=== PATIENT | female | born 1955 | race Two or more races ===

== ENCOUNTER 2019-08-21 12:54 | Inpatient (IN) | payer MEDICAID ==
[~2019-08-21] VITALS: Ht 157.5 cm; Wt 63.5 kg
[2019-08-21] MEDS ORDERED: DILTIAZEM HCL 5 MG/ML 5 ML VIAL IVP ONE ×2 (13:26→13:30)
[2019-08-21 13:48] LABS: BASOPHILS % (AUTO) 0.5 % (0.0-2.0); EOSINOPHILS % (AUTO) 0.1 % (1.0-6.0); HEMATOCRIT 40.5 % (36-46); HEMOGLOBIN 13.5 g/dL (12.0-16.0); LYMPHOCYTES # (AUTO) 1.1 K/uL (1.0-4.8); LYMPHOCYTES % (AUTO) 11.4 % (22.0-44.0); MEAN CORPUSCULAR HEMOGLOBIN 31.4 pg (26.0-34.0); MEAN CORPUSCULAR HGB CONC 33.3 G/dL (31.0-37.0); MEAN CORPUSCULAR VOLUME 94 fL (80-100); MONOCYTES # (AUTO) 1.4 K/uL (0.1-1.0); MONOCYTES % (AUTO) 15.1 % (2.0-9.0); NEUTROPHILS # (AUTO) 6.8 K/uL (1.8-7.7); NEUTROPHILS % (AUTO) 72.9 % (40.0-70.0); RED BLOOD CELL COUNT(AUTO) 4.29 MIL/uL (4.00-5.20); RED CELL DISTRIBUTION WIDTH 14.7 % (11.5-14.5)
[2019-08-21 14:00] LABS: ANION GAP 16 mmol/L (8-16); CALCIUM, TOTAL 9.3 mg/dL (8.8-10.5); CARBON DIOXIDE 19 mmol/L (22-29); CHLORIDE 102 mmol/L (98-107); CREATININE 1.39 mg/dL (0.60-1.30); GLOMERULAR FILTR. RATE CALC 38 mL/min (>60); GLUCOSE,RANDOM 112 mg/dL (70-110); INR 1.3 (0.9-1.1); POTASSIUM 3.8 mmol/L (3.5-5.1); PROTHROMBIN TIME 12.7 SEC (9.4-11.6); SODIUM SERUM 137 mmol/L (136-145)
[2019-08-21 14:10] LABS: PLATELET COUNT (AUTO) 137 K/uL (150-450)
[2019-08-21 14:24] LABS: ALANINE AMINOTRANSFERASE 29 U/L (12-78); ALBUMIN 3.1 g/dL (3.4-5.0); ALKALINE PHOSPHATASE 99 U/L (46-116); ASPARTATE AMINOTRANSFERASE 39 U/L (15-37); BILIRUBIN,TOTAL 1.4 mg/dL (0.1-1.0); CREATINE KINASE, TOTAL ONLY 367 U/L (26-192); TOTAL PROTEIN, SERUM 8.2 g/dL (6.4-8.2)
[2019-08-21 14:25] LABS: B-TYPE NATRIURETIC PEPTIDE 899 pg/mL (0-100)
[2019-08-21 14:32] LABS: UREA NITROGEN, BLOOD 39 mg/dL (7-18)
[2019-08-21] MEDS ORDERED: DILTIAZEM HCL 125 MG in DEXTROSE 5%-WATER 100 ML IV PRN (16:15)
[2019-08-21] MEDS ORDERED: ACETAMINOPHEN 325 MG TABLET PO PRN (18:45)
[2019-08-21] MEDS ORDERED: LORazepam 2 MG/ML VIAL IVP PRN (18:45)
[2019-08-21] MEDS: MULTIVITAMINS WITH MINERALS, THERAPEUTIC TABLET PO SCH (18:45)
[2019-08-21 20:35] LABS: AMPHET/METH SCREEN,URINE NEGATIVE (NEGATIVE); APPEARANCE,URINE CLOUDY (CLEAR); BARBITURATE SCREEN, URINE NEGATIVE (NEGATIVE); BENZODIAZEPINES SCREEN,URINE NEGATIVE (NEGATIVE); CANNABINOID SCREEN,URINE NEGATIVE (NEGATIVE); COCAINE SCREEN,URINE NEGATIVE (NEGATIVE); GLUCOSE, URINE (UA) NEGATIVE (NEGATIVE); KETONES,URINE TRACE mg/dL (NEGATIVE); LEUKOCYTE ESTERASE ,URINE SMALL (NEGATIVE); METHADONE SCREEN, URINE NEGATIVE (NEGATIVE); NITRATE,URINE POSITIVE (NEGATIVE); OCCULT BLOOD,URINE NEGATIVE (NEGATIVE); OPIATE SCREEN,URINE NEGATIVE (NEGATIVE); PROTEIN,URINE NEGATIVE (NEGATIVE)
[2019-08-21 20:36] LABS: BILIRUBIN,URINE PRELIM. POSITIVE (NEGATIVE)
[2019-08-21 20:37] LABS: PHENCYCLIDINE SCREEN,URINE NEGATIVE (NEGATIVE)
[2019-08-21] MEDS ORDERED: DILTIAZEM HCL 125 MG in DEXTROSE 5%-WATER 100 ML IV SCH (21:00)
[2019-08-21] MEDS: DOCUSATE SODIUM 100 MG CAPSULE PO SCH (21:00)
[2019-08-21 21:14] LABS: BACTERIA,URINE Many /HPF (None Seen); RBC,URINE None Seen /HPF (0-2); WBC,URINE 0-2 /HPF (0-5)
[2019-08-21 21:15] LABS: AMORPHOUS SEDIMENT,UR Few /LPF (None Seen); SQUAMOUS EPITHELIAL CELL,UR Few /LPF (None Seen)
[2019-08-21 21:43] VITALS: BP 104/77
[2019-08-21] MEDS: APIXABAN 5 MG TABLET PO SCH (22:35)
[2019-08-21 23:48] VITALS: BP 118/71
[2019-08-22 04:29] VITALS: BP 122/86
[2019-08-22 08:37] VITALS: BP 106/73
[2019-08-22] MEDS: DOCUSATE SODIUM 100 MG CAPSULE PO SCH ×2 (08:49→21:35)
[2019-08-22] MEDS: MULTIVITAMINS WITH MINERALS, THERAPEUTIC TABLET PO SCH (08:49)
[2019-08-22] MEDS: APIXABAN 5 MG TABLET PO SCH (08:49)
[2019-08-22] MEDS: FAMOTIDINE 20 MG TABLET PO SCH (08:49)
[2019-08-22] MEDS ORDERED: MAGNESIUM SULFATE 4 GM/WATER 100 ML IV PRN (10:45)
[2019-08-22] MEDS ORDERED: SODIUM CHLORIDE 0.9% 1,000 ML IV ONE (10:45)
[2019-08-22 10:47] VITALS: BP 111/79
[2019-08-22] MEDS: CARVEDILOL 6.25 MG TABLET PO SCH ×2 (10:57→21:00)
[2019-08-22 12:30] LABS: ALBUMIN 2.7 g/dL (3.4-5.0)
[2019-08-22] MEDS: MAGNESIUM SULFATE 2 GM/WATER 50 ML IV PRN (12:42)
[2019-08-22 13:27] LABS: BASOPHILS % (AUTO) 0.3 % (0.0-2.0); EOSINOPHILS % (AUTO) 0.3 % (1.0-6.0); HEMATOCRIT 39.8 % (36-46); HEMOGLOBIN 13.2 g/dL (12.0-16.0); LYMPHOCYTES # (AUTO) 1.4 K/uL (1.0-4.8); LYMPHOCYTES % (AUTO) 19.1 % (22.0-44.0); MEAN CORPUSCULAR HEMOGLOBIN 31.8 pg (26.0-34.0); MEAN CORPUSCULAR HGB CONC 33.1 G/dL (31.0-37.0); MEAN CORPUSCULAR VOLUME 96 fL (80-100); MONOCYTES # (AUTO) 0.7 K/uL (0.1-1.0); MONOCYTES % (AUTO) 9.7 % (2.0-9.0); NEUTROPHILS # (AUTO) 5.1 K/uL (1.8-7.7); NEUTROPHILS % (AUTO) 70.6 % (40.0-70.0); PLATELET COUNT (AUTO) 115 K/uL (150-450); RED BLOOD CELL COUNT(AUTO) 4.15 MIL/uL (4.00-5.20); RED CELL DISTRIBUTION WIDTH 14.5 % (11.5-14.5)
[2019-08-22 13:32] LABS: ANION GAP 12 mmol/L (8-16); CARBON DIOXIDE 23 mmol/L (22-29); CHLORIDE 105 mmol/L (98-107); CREATININE 0.64 mg/dL (0.60-1.30); GLOMERULAR FILTR. RATE CALC > 60 mL/min (>60); GLUCOSE,RANDOM 101 mg/dL (70-110); POTASSIUM 3.4 mmol/L (3.5-5.1); SODIUM SERUM 140 mmol/L (136-145); UREA NITROGEN, BLOOD 30 mg/dL (7-18)
[2019-08-22] MEDS: POTASSIUM CHLORIDE 20 MEQ ER TABLET PO PRN (14:45)
[2019-08-22] MEDS: LOSARTAN POTASSIUM 25 MG TABLET PO SCH (14:45)
[2019-08-22 15:50] VITALS: BP 104/66
[2019-08-22] MEDS: TAMSULOSIN HCL 0.4 MG CAPSULE PO SCH (16:57)
[2019-08-22 19:42] VITALS: BP 101/65
[2019-08-22] MEDS: APIXABAN 2.5 MG TABLET PO SCH (21:38)
[2019-08-22 23:51] VITALS: BP 104/71
[2019-08-23 04:23] VITALS: BP 99/62
[2019-08-23 08:18] VITALS: BP 109/64
[2019-08-23] MEDS: CARVEDILOL 6.25 MG TABLET PO SCH (08:37)
[2019-08-23] MEDS: LOSARTAN POTASSIUM 25 MG TABLET PO SCH (08:37)
[2019-08-23] MEDS: DOCUSATE SODIUM 100 MG CAPSULE PO SCH ×2 (08:37→20:14)
[2019-08-23] MEDS: TAMSULOSIN HCL 0.4 MG CAPSULE PO SCH (08:37)
[2019-08-23] MEDS: FAMOTIDINE 20 MG TABLET PO SCH (08:37)
[2019-08-23] MEDS: MULTIVITAMINS WITH MINERALS, THERAPEUTIC TABLET PO SCH (08:37)
[2019-08-23] MEDS: APIXABAN 2.5 MG TABLET PO SCH ×2 (08:37→20:13)
[2019-08-23 09:20] LABS: BASOPHILS % (AUTO) 0.4 % (0.0-2.0); EOSINOPHILS % (AUTO) 0.2 % (1.0-6.0); HEMATOCRIT 40.5 % (36-46); HEMOGLOBIN 13.3 g/dL (12.0-16.0); LYMPHOCYTES # (AUTO) 1.6 K/uL (1.0-4.8); LYMPHOCYTES % (AUTO) 21.2 % (22.0-44.0); MEAN CORPUSCULAR HEMOGLOBIN 31.6 pg (26.0-34.0); MEAN CORPUSCULAR HGB CONC 32.9 G/dL (31.0-37.0); MEAN CORPUSCULAR VOLUME 96 fL (80-100); MONOCYTES # (AUTO) 0.9 K/uL (0.1-1.0); MONOCYTES % (AUTO) 12.4 % (2.0-9.0); NEUTROPHILS % (AUTO) 65.8 % (40.0-70.0); PLATELET COUNT (AUTO) 110 K/uL (150-450); RED BLOOD CELL COUNT(AUTO) 4.21 MIL/uL (4.00-5.20); RED CELL DISTRIBUTION WIDTH 14.9 % (11.5-14.5)
[2019-08-23 09:40] LABS: ALANINE AMINOTRANSFERASE 24 U/L (12-78); ALBUMIN 2.5 g/dL (3.4-5.0); ALKALINE PHOSPHATASE 89 U/L (46-116); ANION GAP 12 mmol/L (8-16); ASPARTATE AMINOTRANSFERASE 31 U/L (15-37); BILIRUBIN,TOTAL 1.4 mg/dL (0.1-1.0); CALCIUM, TOTAL 8.8 mg/dL (8.8-10.5); CARBON DIOXIDE 23 mmol/L (22-29); CHLORIDE 105 mmol/L (98-107); CREATININE 0.43 mg/dL (0.60-1.30); GLOMERULAR FILTR. RATE CALC > 60 mL/min (>60); GLUCOSE,RANDOM 86 mg/dL (70-110); POTASSIUM 3.7 mmol/L (3.5-5.1); SODIUM SERUM 140 mmol/L (136-145); TOTAL PROTEIN, SERUM 7.1 g/dL (6.4-8.2); UREA NITROGEN, BLOOD 20 mg/dL (7-18)
[2019-08-23] MEDS: MAGNESIUM SULFATE 2 GM/WATER 50 ML IV PRN (11:22)
[2019-08-23 19:39] VITALS: BP 106/61
[2019-08-23] MEDS: CARVEDILOL 3.125 MG TABLET PO SCH (20:14)
[2019-08-23 23:56] VITALS: BP 113/66
[2019-08-24 05:12] VITALS: BP 100/58
[2019-08-24 07:01] LABS: BASOPHILS % (AUTO) 0.5 % (0.0-2.0); EOSINOPHILS % (AUTO) 0.2 % (1.0-6.0); HEMATOCRIT 41.8 % (36-46); HEMOGLOBIN 14.1 g/dL (12.0-16.0); LYMPHOCYTES # (AUTO) 1.4 K/uL (1.0-4.8); LYMPHOCYTES % (AUTO) 16.7 % (22.0-44.0); MEAN CORPUSCULAR HEMOGLOBIN 32.4 pg (26.0-34.0); MEAN CORPUSCULAR HGB CONC 33.6 G/dL (31.0-37.0); MEAN CORPUSCULAR VOLUME 96 fL (80-100); MONOCYTES # (AUTO) 1.3 K/uL (0.1-1.0); MONOCYTES % (AUTO) 15.2 % (2.0-9.0); NEUTROPHILS # (AUTO) 5.6 K/uL (1.8-7.7); NEUTROPHILS % (AUTO) 67.4 % (40.0-70.0); PLATELET COUNT (AUTO) 127 K/uL (150-450); RED BLOOD CELL COUNT(AUTO) 4.34 MIL/uL (4.00-5.20)
[2019-08-24 07:38] LABS: ALANINE AMINOTRANSFERASE 22 U/L (12-78); ALBUMIN 2.4 g/dL (3.4-5.0); ALKALINE PHOSPHATASE 103 U/L (46-116); ANION GAP 12 mmol/L (8-16); ASPARTATE AMINOTRANSFERASE 32 U/L (15-37); BILIRUBIN,TOTAL 1.2 mg/dL (0.1-1.0); CALCIUM, TOTAL 9.4 mg/dL (8.8-10.5); CARBON DIOXIDE 23 mmol/L (22-29); CHLORIDE 105 mmol/L (98-107); GLOMERULAR FILTR. RATE CALC > 60 mL/min (>60); GLUCOSE,RANDOM 95 mg/dL (70-110); POTASSIUM 3.7 mmol/L (3.5-5.1); SODIUM SERUM 140 mmol/L (136-145); TOTAL PROTEIN, SERUM 7.5 g/dL (6.4-8.2); UREA NITROGEN, BLOOD 21 mg/dL (7-18)
[2019-08-24 07:54] VITALS: BP 96/60
[2019-08-24] MEDS: MULTIVITAMINS WITH MINERALS, THERAPEUTIC TABLET PO SCH (08:34)
[2019-08-24] MEDS: APIXABAN 2.5 MG TABLET PO SCH ×2 (08:34→20:34)
[2019-08-24] MEDS: CARVEDILOL 3.125 MG TABLET PO SCH ×2 (08:35→20:30)
[2019-08-24] MEDS: LOSARTAN POTASSIUM 25 MG TABLET PO SCH (08:35)
[2019-08-24] MEDS: FAMOTIDINE 20 MG TABLET PO SCH (08:35)
[2019-08-24] MEDS: DOCUSATE SODIUM 100 MG CAPSULE PO SCH ×2 (10:32→20:34)
[2019-08-24 11:49] VITALS: BP 97/62
[2019-08-24 16:08] VITALS: BP 105/59
[2019-08-24 20:24] VITALS: BP 98/69
[2019-08-25 00:16] VITALS: BP 102/60
[2019-08-25 05:35] VITALS: BP 95/69
[2019-08-25] MEDS ORDERED: DIGOXIN 250 MCG/ML 2 ML AMP IVP ONE (07:15)
[2019-08-25 07:53] VITALS: BP 109/63
[2019-08-25] MEDS: MULTIVITAMINS WITH MINERALS, THERAPEUTIC TABLET PO SCH (08:24)
[2019-08-25] MEDS: MAGNESIUM SULFATE 2 GM/WATER 50 ML IV PRN (08:24)
[2019-08-25] MEDS: DOCUSATE SODIUM 100 MG CAPSULE PO SCH ×2 (08:24→20:50)
[2019-08-25] MEDS: LOSARTAN POTASSIUM 25 MG TABLET PO SCH (08:24)
[2019-08-25] MEDS: APIXABAN 2.5 MG TABLET PO SCH ×2 (08:24→20:50)
[2019-08-25] MEDS: CARVEDILOL 3.125 MG TABLET PO SCH ×2 (08:24→20:50)
[2019-08-25] MEDS: FAMOTIDINE 20 MG TABLET PO SCH (08:24)
[2019-08-25 11:33] VITALS: BP 98/54
[2019-08-25 15:54] VITALS: BP 89/45
[2019-08-25] MEDS: TAMSULOSIN HCL 0.4 MG CAPSULE PO SCH (17:42)
[2019-08-25 17:46] LABS: APPEARANCE,URINE CLOUDY (CLEAR); GLUCOSE, URINE (UA) NEGATIVE (NEGATIVE); KETONES,URINE TRACE mg/dL (NEGATIVE); LEUKOCYTE ESTERASE ,URINE SMALL (NEGATIVE); NITRATE,URINE POSITIVE (NEGATIVE); OCCULT BLOOD,URINE NEGATIVE (NEGATIVE); PROTEIN,URINE NEGATIVE (NEGATIVE)
[2019-08-25 17:47] LABS: BILIRUBIN,URINE PRELIM. POSITIVE (NEGATIVE)
[2019-08-25 17:57] LABS: BACTERIA,URINE Many /HPF (None Seen); RBC,URINE None Seen /HPF (0-2)
[2019-08-25 17:59] LABS: SQUAMOUS EPITHELIAL CELL,UR Few /LPF (None Seen)
[2019-08-25 20:30] VITALS: BP 92/59
[2019-08-26 00:56] VITALS: BP 91/64
[2019-08-26 04:38] VITALS: BP 96/62
[2019-08-26 07:52] VITALS: BP 92/61
[2019-08-26] MEDS: MULTIVITAMINS WITH MINERALS, THERAPEUTIC TABLET PO SCH (08:32)
[2019-08-26] MEDS: CARVEDILOL 3.125 MG TABLET PO SCH (08:32)
[2019-08-26] MEDS: FAMOTIDINE 20 MG TABLET PO SCH (08:32)
[2019-08-26] MEDS: TAMSULOSIN HCL 0.4 MG CAPSULE PO SCH (08:32)
[2019-08-26] MEDS: DOCUSATE SODIUM 100 MG CAPSULE PO SCH ×2 (08:32→21:29)
[2019-08-26] MEDS: APIXABAN 2.5 MG TABLET PO SCH ×2 (08:41→21:29)
[2019-08-26] MEDS: LOSARTAN POTASSIUM 25 MG TABLET PO SCH (08:41)
[2019-08-26] MEDS: MAGNESIUM OXIDE 400 MG TABLET PO PRN (10:58)
[2019-08-26 11:34] VITALS: BP 94/67
[2019-08-26 19:55] VITALS: BP 99/66
[2019-08-26] MEDS: CARVEDILOL 6.25 MG TABLET PO SCH (21:29)
[2019-08-27 05:10] VITALS: BP 95/71
[2019-08-27 06:54] LABS: BASOPHILS % (AUTO) 0.5 % (0.0-2.0); EOSINOPHILS % (AUTO) 0.7 % (1.0-6.0); HEMATOCRIT 39.7 % (36-46); HEMOGLOBIN 13.1 g/dL (12.0-16.0); LYMPHOCYTES # (AUTO) 2.2 K/uL (1.0-4.8); LYMPHOCYTES % (AUTO) 24.3 % (22.0-44.0); MEAN CORPUSCULAR HEMOGLOBIN 31.5 pg (26.0-34.0); MEAN CORPUSCULAR HGB CONC 32.9 G/dL (31.0-37.0); MEAN CORPUSCULAR VOLUME 96 fL (80-100); MONOCYTES # (AUTO) 1.6 K/uL (0.1-1.0); MONOCYTES % (AUTO) 17.5 % (2.0-9.0); NEUTROPHILS # (AUTO) 5.1 K/uL (1.8-7.7); PLATELET COUNT (AUTO) 186 K/uL (150-450); RED BLOOD CELL COUNT(AUTO) 4.15 MIL/uL (4.00-5.20); RED CELL DISTRIBUTION WIDTH 15.1 % (11.5-14.5)
[2019-08-27 07:17] LABS: ALANINE AMINOTRANSFERASE 36 U/L (12-78); ALBUMIN 1.9 g/dL (3.4-5.0); ALKALINE PHOSPHATASE 157 U/L (46-116); ANION GAP 10 mmol/L (8-16); ASPARTATE AMINOTRANSFERASE 67 U/L (15-37); BILIRUBIN,TOTAL 1.4 mg/dL (0.1-1.0); CALCIUM, TOTAL 9.1 mg/dL (8.8-10.5); CARBON DIOXIDE 26 mmol/L (22-29); CHLORIDE 107 mmol/L (98-107); CREATININE 0.81 mg/dL (0.60-1.30); GLOMERULAR FILTR. RATE CALC > 60 mL/min (>60); GLUCOSE,RANDOM 106 mg/dL (70-110); POTASSIUM 3.3 mmol/L (3.5-5.1); SODIUM SERUM 143 mmol/L (136-145); TOTAL PROTEIN, SERUM 7.2 g/dL (6.4-8.2); UREA NITROGEN, BLOOD 25 mg/dL (7-18)
[2019-08-27 07:43] VITALS: BP 108/59
[2019-08-27] MEDS: FAMOTIDINE 20 MG TABLET PO SCH (09:11)
[2019-08-27] MEDS: MULTIVITAMINS WITH MINERALS, THERAPEUTIC TABLET PO SCH (09:11)
[2019-08-27] MEDS: CARVEDILOL 6.25 MG TABLET PO SCH (09:11)
[2019-08-27] MEDS: LOSARTAN POTASSIUM 25 MG TABLET PO SCH (09:11)
[2019-08-27] MEDS: DOCUSATE SODIUM 100 MG CAPSULE PO SCH (09:11)
[2019-08-27] MEDS: POTASSIUM CHL 10 MEQ/WATER 50 ML IV PRN ×2 (09:12→09:59)
[2019-08-27] MEDS: APIXABAN 2.5 MG TABLET PO SCH (09:23)
[2019-08-27] MEDS ORDERED: CARV6 PO (09:56)
[2019-08-27] MEDS: POTASSIUM CHLORIDE 20 MEQ ER TABLET PO PRN (09:57)
[2019-08-27] MEDS: MAGNESIUM OXIDE 400 MG TABLET PO PRN ×2 (09:57→13:07)
[2019-08-27] MEDS ORDERED: ASPI-556 PO (09:57)
[2019-08-27] MEDS ORDERED: MV-M1TAB2 PO (09:57)
[2019-08-27 11:25] VITALS: BP 95/53
[2019-08-27 18:06] LABS: GLUCOMETER DEV NAME(LOC) 5N.1; GLUCOSE,POINT OF CARE 197 MG/DL (70-110)
== END 2019-08-27 14:50 | disposition home or self-care (01) | DRG 308 ==
LOC: EMS 12:59 → 5N 20:00
PROVIDERS: ADMIT Internal Medicine; ATTEND Internal Medicine
DX: I48.20 Chronic atrial fibrillation, unspecified (principal); I50.21 Acute systolic (congestive) heart failure; E43 Unspecified severe protein-calorie malnutrition; N17.9 Acute kidney failure, unspecified; I25.5 Ischemic cardiomyopathy; F10.10 Alcohol abuse, uncomplicated; E83.42 Hypomagnesemia; E87.6 Hypokalemia; I25.10 Atherosclerotic heart disease of native coronary artery without angina pectoris; F17.210 Nicotine dependence, cigarettes, uncomplicated; Y90.9 Presence of alcohol in blood, level not specified; F41.9 Anxiety disorder, unspecified; Z68.25 Body mass index [BMI] 25.0-25.9, adult; Z59.0 Homelessness; Z91.19 Patient's noncompliance with other medical treatment and regimen; Z95.5 Presence of coronary angioplasty implant and graft
CPT/HCPCS: 70450; 83735; 84132; 84439; 84443; 87086; 93005; 93306; G0480; J1160; J3475; J3480; J3490; J7030; J7060

== ENCOUNTER 2019-08-28 11:11 | Inpatient (IN) | payer MEDICAID ==
[~2019-08-28] VITALS: Ht 157.5 cm; Wt 61.9 kg
[~2019-08-28 11:11] MED LIST: ASPI-556 PO; CARV6 PO; MV-M1TAB2 PO
[2019-08-28 11:45] LABS: BASOPHILS % (AUTO) 0.3 % (0.0-2.0); EOSINOPHILS % (AUTO) 0.5 % (1.0-6.0); HEMATOCRIT 44.3 % (36-46); HEMOGLOBIN 14.3 g/dL (12.0-16.0); LYMPHOCYTES # (AUTO) 2.5 K/uL (1.0-4.8); LYMPHOCYTES % (AUTO) 20.6 % (22.0-44.0); MEAN CORPUSCULAR HEMOGLOBIN 31.4 pg (26.0-34.0); MEAN CORPUSCULAR HGB CONC 32.3 G/dL (31.0-37.0); MEAN CORPUSCULAR VOLUME 97 fL (80-100); MONOCYTES # (AUTO) 1.3 K/uL (0.1-1.0); MONOCYTES % (AUTO) 10.5 % (2.0-9.0); NEUTROPHILS # (AUTO) 8.3 K/uL (1.8-7.7); NEUTROPHILS % (AUTO) 68.1 % (40.0-70.0); RED BLOOD CELL COUNT(AUTO) 4.55 MIL/uL (4.00-5.20)
[2019-08-28] MEDS ORDERED: SODIUM CHLORIDE 0.9% 500 ML IV ONE (11:45)
[2019-08-28 11:59] LABS: CARBON DIOXIDE 25 mmol/L (22-29); CHLORIDE 101 mmol/L (98-107); POTASSIUM 4.6 mmol/L (3.5-5.1); SODIUM SERUM 136 mmol/L (136-145)
[2019-08-28 12:00] LABS: ANION GAP 10 mmol/L (8-16); CALCIUM, TOTAL 10.2 mg/dL (8.8-10.5); CREATININE 1.13 mg/dL (0.60-1.30); GLOMERULAR FILTR. RATE CALC 49 mL/min (>60); GLUCOSE,RANDOM 140 mg/dL (70-110); UREA NITROGEN, BLOOD 37 mg/dL (7-18)
[2019-08-28 12:05] LABS: PLATELET COUNT (AUTO) 268 K/uL (150-450); PLATELET MORPHOLOGY COMMENT GIANT PLTS PRESENT
[2019-08-28 12:23] LABS: ALANINE AMINOTRANSFERASE 59 U/L (12-78); ALBUMIN 2.5 g/dL (3.4-5.0); ALKALINE PHOSPHATASE 233 U/L (46-116); ASPARTATE AMINOTRANSFERASE 79 U/L (15-37); BILIRUBIN,TOTAL 1.4 mg/dL (0.1-1.0); CREATINE KINASE, TOTAL ONLY 382 U/L (26-192); THYROID STIMULATING HORMONE 8.74 uIU/mL (0.36-3.74); TOTAL PROTEIN, SERUM 9.1 g/dL (6.4-8.2)
[2019-08-28 13:08] LABS: GLUCOSE, URINE (UA) NEGATIVE (NEGATIVE); KETONES,URINE TRACE mg/dL (NEGATIVE); LEUKOCYTE ESTERASE ,URINE MODERATE (NEGATIVE); NITRATE,URINE NEGATIVE (NEGATIVE); OCCULT BLOOD,URINE NEGATIVE (NEGATIVE); PROTEIN,URINE NEGATIVE (NEGATIVE)
[2019-08-28 13:09] LABS: APPEARANCE,URINE HAZY (CLEAR); BILIRUBIN,URINE PRELIM. POSITIVE (NEGATIVE)
[2019-08-28 13:14] LABS: AMPHET/METH SCREEN,URINE NEGATIVE (NEGATIVE); BARBITURATE SCREEN, URINE NEGATIVE (NEGATIVE); BENZODIAZEPINES SCREEN,URINE NEGATIVE (NEGATIVE); CANNABINOID SCREEN,URINE NEGATIVE (NEGATIVE); COCAINE SCREEN,URINE NEGATIVE (NEGATIVE); METHADONE SCREEN, URINE NEGATIVE (NEGATIVE); OPIATE SCREEN,URINE NEGATIVE (NEGATIVE)
[2019-08-28 13:16] LABS: PHENCYCLIDINE SCREEN,URINE NEGATIVE (NEGATIVE)
[2019-08-28 13:20] LABS: BACTERIA,URINE Moderate /HPF (None Seen); RBC,URINE None Seen /HPF (0-2)
[2019-08-28 13:21] LABS: YEAST,URINE Moderate /HPF (None Seen)
[2019-08-28] MEDS ORDERED: SODIUM CHLORIDE 0.9% 250 ML IV ONE ×2 (14:32→14:45)
[2019-08-28 17:02] LABS: INR 1.2 (0.9-1.1); PROTHROMBIN TIME 12.4 SEC (9.4-11.6)
[2019-08-28 17:23] LABS: LACTIC ACID 2.4 mmol/L (0.4-2.0)
[2019-08-28] MEDS ORDERED: ZOLPIDEM TARTRATE 5 MG TABLET PO PRN (20:00)
[2019-08-28] MEDS ORDERED: HYDROCODONE/ACETAMINOPHEN 5-325 MG TABLET PO PRN (20:00)
[2019-08-28] MEDS ORDERED: MORPHINE SULFATE 2 MG/ML SYRINGE IVP PRN (20:00)
[2019-08-28] MEDS ORDERED: ONDANSETRON HCL 4 MG/2 ML VIAL IVP PRN (20:00)
[2019-08-28] MEDS ORDERED: BISACODYL 10 MG RECTAL RECTAL SUPPOSITORY PR PRN (20:00)
[2019-08-28] MEDS ORDERED: ACETAMINOPHEN 325 MG TABLET PO PRN (20:00)
[2019-08-28] MEDS ORDERED: MAGNESIUM HYDROXIDE SUSPENSION 30 ML UDCUP PO PRN (20:00)
[2019-08-28 20:35] VITALS: BP 119/57
[2019-08-28] MEDS ORDERED: FUROSEMIDE 20 MG TABLET PO SCH (21:00)
[2019-08-28] MEDS: DOCUSATE SODIUM 100 MG CAPSULE PO SCH (21:02)
[2019-08-28] MEDS: FUROSEMIDE 20 MG/2 ML VIAL IVP SCH (21:02)
[2019-08-29] VITALS (8 sets, daily range): BP systolic 85–126; BP diastolic 40–77
[2019-08-29] MEDS ORDERED: PNEUMOCOCCAL VACCINE POLYVALENT 0.5 ML VIAL [PPSV23] IM ONE (00:30)
[2019-08-29] MEDS ORDERED: INFLUENZA VIRUS VACCINE QVS 2019-20 (3YR+)/PF 60 MCG/0.5 ML SYRINGE IM ONE (00:30)
[2019-08-29 06:13] LABS: BASOPHILS % (AUTO) 0.6 % (0.0-2.0); EOSINOPHILS % (AUTO) 0.9 % (1.0-6.0); HEMATOCRIT 41.5 % (36-46); HEMOGLOBIN 13.5 g/dL (12.0-16.0); LYMPHOCYTES # (AUTO) 2.1 K/uL (1.0-4.8); LYMPHOCYTES % (AUTO) 26.9 % (22.0-44.0); MEAN CORPUSCULAR HEMOGLOBIN 31.3 pg (26.0-34.0); MEAN CORPUSCULAR HGB CONC 32.6 G/dL (31.0-37.0); MEAN CORPUSCULAR VOLUME 96 fL (80-100); MONOCYTES # (AUTO) 0.9 K/uL (0.1-1.0); MONOCYTES % (AUTO) 11.6 % (2.0-9.0); NEUTROPHILS # (AUTO) 4.6 K/uL (1.8-7.7); PLATELET COUNT (AUTO) 214 K/uL (150-450); RED BLOOD CELL COUNT(AUTO) 4.32 MIL/uL (4.00-5.20); RED CELL DISTRIBUTION WIDTH 14.7 % (11.5-14.5)
[2019-08-29 06:23] LABS: ANION GAP 9 mmol/L (8-16); CALCIUM, TOTAL 9.3 mg/dL (8.8-10.5); CARBON DIOXIDE 26 mmol/L (22-29); CHLORIDE 105 mmol/L (98-107); CREATININE 0.86 mg/dL (0.60-1.30); GLOMERULAR FILTR. RATE CALC > 60 mL/min (>60); GLUCOSE,RANDOM 94 mg/dL (70-110); POTASSIUM 3.9 mmol/L (3.5-5.1); SODIUM SERUM 140 mmol/L (136-145); UREA NITROGEN, BLOOD 32 mg/dL (7-18)
[2019-08-29] MEDS: HEPARIN SODIUM,PORCINE 5,000 UNITS/ML VIAL SQ SCH ×4 (08:00→23:45)
[2019-08-29] MEDS ORDERED: COQ10 PO SCH (09:00)
[2019-08-29] MEDS ORDERED: LUTEIN PO SCH (09:00)
[2019-08-29] MEDS ORDERED: [UNRECOGNIZED DRUG - OTHER] PO SCH (09:00)
[2019-08-29] MEDS ORDERED: MV MN PO SCH (09:00)
[2019-08-29] MEDS: DOCUSATE SODIUM 100 MG CAPSULE PO SCH ×2 (09:00→20:06)
[2019-08-29] MEDS ORDERED: LYCOPENE PO SCH (09:00)
[2019-08-29] MEDS: FUROSEMIDE 20 MG/2 ML VIAL IVP SCH ×2 (10:07→20:06)
[2019-08-29] MEDS: PANTOPRAZOLE SODIUM 40 MG DR TABLET PO SCH (10:09)
[2019-08-29] MEDS: ASPIRIN 81 MG EC TABLET PO SCH (10:09)
[2019-08-29] MEDS: CARVEDILOL 3.125 MG TABLET PO SCH ×2 (12:07→20:06)
[2019-08-29] MEDS: MULTIVITAMINS WITH MINERALS, THERAPEUTIC TABLET PO SCH (12:07)
[2019-08-29] MEDS: APIXABAN 5 MG TABLET PO SCH (21:16)
[2019-08-30 04:32] VITALS: BP 94/57
[2019-08-30 07:05] LABS: BASOPHILS % (AUTO) 0.5 % (0.0-2.0); EOSINOPHILS % (AUTO) 0.6 % (1.0-6.0); HEMATOCRIT 35.6 % (36-46); HEMOGLOBIN 11.6 g/dL (12.0-16.0); LYMPHOCYTES % (AUTO) 25.4 % (22.0-44.0); MEAN CORPUSCULAR HEMOGLOBIN 30.9 pg (26.0-34.0); MEAN CORPUSCULAR HGB CONC 32.7 G/dL (31.0-37.0); MEAN CORPUSCULAR VOLUME 95 fL (80-100); MONOCYTES % (AUTO) 13.4 % (2.0-9.0); NEUTROPHILS # (AUTO) 4.7 K/uL (1.8-7.7); NEUTROPHILS % (AUTO) 60.1 % (40.0-70.0); PLATELET COUNT (AUTO) 210 K/uL (150-450); RED BLOOD CELL COUNT(AUTO) 3.76 MIL/uL (4.00-5.20); RED CELL DISTRIBUTION WIDTH 14.4 % (11.5-14.5)
[2019-08-30 07:34] LABS: ANION GAP 10 mmol/L (8-16); CALCIUM, TOTAL 8.2 mg/dL (8.8-10.5); CARBON DIOXIDE 26 mmol/L (22-29); CHLORIDE 96 mmol/L (98-107); CREATININE 0.52 mg/dL (0.60-1.30); GLOMERULAR FILTR. RATE CALC > 60 mL/min (>60); GLUCOSE,RANDOM 83 mg/dL (70-110); POTASSIUM 3.3 mmol/L (3.5-5.1); SODIUM SERUM 132 mmol/L (136-145); UREA NITROGEN, BLOOD 23 mg/dL (7-18)
[2019-08-30] MEDS: ASPIRIN 81 MG EC TABLET PO SCH (07:54)
[2019-08-30] MEDS: DOCUSATE SODIUM 100 MG CAPSULE PO SCH ×2 (07:54→21:35)
[2019-08-30] MEDS: APIXABAN 5 MG TABLET PO SCH ×2 (07:54→21:35)
[2019-08-30] MEDS: FUROSEMIDE 20 MG/2 ML VIAL IVP SCH ×2 (07:54→21:36)
[2019-08-30] MEDS: HEPARIN SODIUM,PORCINE 5,000 UNITS/ML VIAL SQ SCH ×2 (07:54→16:23)
[2019-08-30 08:02] VITALS: BP 103/59
[2019-08-30] MEDS: CARVEDILOL 3.125 MG TABLET PO SCH ×2 (09:00→21:35)
[2019-08-30] MEDS ORDERED: PERMETHRIN 5% 60 GM CREAM TP ONE (11:15)
[2019-08-30] MEDS ORDERED: CefTRIAXone 1 GM/DEXTROSE 50 ML IV SCH (11:15)
[2019-08-30] MEDS ORDERED: POTASSIUM CHL 10 MEQ/WATER 50 ML IV PRN (11:30)
[2019-08-30] MEDS ORDERED: POTASSIUM CHLORIDE 20 MEQ ER TABLET PO PRN (11:30)
[2019-08-30] MEDS ORDERED: SODIUM CHLORIDE 0.9% 500 ML IV ONE (11:44)
[2019-08-30 11:50] VITALS: BP 95/64
[2019-08-30] MEDS: MULTIVITAMINS WITH MINERALS, THERAPEUTIC TABLET PO SCH (12:21)
[2019-08-30] MEDS: CIPROFLOXACIN HCL 250 MG TABLET PO SCH ×2 (12:22→21:35)
[2019-08-30] MEDS: PANTOPRAZOLE SODIUM 40 MG DR TABLET PO SCH (12:22)
[2019-08-30] MEDS: POTASSIUM CHLORIDE 20 MEQ ER TABLET PO PRN (12:23)
[2019-08-30 16:07] VITALS: BP 92/51
[2019-08-30 19:56] VITALS: BP 100/50
[2019-08-31 00:10] VITALS: BP 95/49
[2019-08-31] MEDS: HEPARIN SODIUM,PORCINE 5,000 UNITS/ML VIAL SQ SCH ×4 (00:24→23:35)
[2019-08-31 01:21] LABS: PHOSPHORUS 3.1 mg/dL (2.5-4.9)
[2019-08-31 01:54] LABS: MAGNESIUM 1.1 mg/dL (1.80-2.40)
[2019-08-31 04:55] VITALS: BP 100/56
[2019-08-31] MEDS ORDERED: MAGNESIUM SULFATE 4 GM/WATER 100 ML IV PRN (05:15)
[2019-08-31] MEDS ORDERED: MAGNESIUM SULFATE 2 GM/WATER 50 ML IV PRN (05:15)
[2019-08-31 06:45] LABS: BASOPHILS % (AUTO) 0.5 % (0.0-2.0); EOSINOPHILS % (AUTO) 0.5 % (1.0-6.0); HEMATOCRIT 36.4 % (36-46); HEMOGLOBIN 12.2 g/dL (12.0-16.0); LYMPHOCYTES # (AUTO) 1.5 K/uL (1.0-4.8); LYMPHOCYTES % (AUTO) 20.4 % (22.0-44.0); MEAN CORPUSCULAR HEMOGLOBIN 31.5 pg (26.0-34.0); MEAN CORPUSCULAR HGB CONC 33.5 G/dL (31.0-37.0); MEAN CORPUSCULAR VOLUME 94 fL (80-100); MONOCYTES % (AUTO) 13.4 % (2.0-9.0); NEUTROPHILS # (AUTO) 4.8 K/uL (1.8-7.7); NEUTROPHILS % (AUTO) 65.2 % (40.0-70.0); PLATELET COUNT (AUTO) 204 K/uL (150-450); RED BLOOD CELL COUNT(AUTO) 3.87 MIL/uL (4.00-5.20); RED CELL DISTRIBUTION WIDTH 14.8 % (11.5-14.5)
[2019-08-31 07:04] LABS: PLATELET MORPHOLOGY COMMENT GIANT PLTS PRESENT
[2019-08-31 07:14] LABS: ALBUMIN 1.9 g/dL (3.4-5.0); ANION GAP 10 mmol/L (8-16); CALCIUM, TOTAL 8.2 mg/dL (8.8-10.5); CARBON DIOXIDE 26 mmol/L (22-29); CHLORIDE 96 mmol/L (98-107); CREATININE 0.52 mg/dL (0.60-1.30); GLOMERULAR FILTR. RATE CALC > 60 mL/min (>60); GLUCOSE,RANDOM 96 mg/dL (70-110); SODIUM SERUM 132 mmol/L (136-145); UREA NITROGEN, BLOOD 18 mg/dL (7-18)
[2019-08-31 07:21] VITALS: BP 96/52
[2019-08-31] MEDS ORDERED: SODIUM CHLORIDE 0.9% 250 ML IV ONE (09:43)
[2019-08-31] MEDS: ASPIRIN 81 MG EC TABLET PO SCH (09:46)
[2019-08-31] MEDS: MULTIVITAMINS WITH MINERALS, THERAPEUTIC TABLET PO SCH (09:46)
[2019-08-31] MEDS: CARVEDILOL 3.125 MG TABLET PO SCH (09:46)
[2019-08-31] MEDS: APIXABAN 5 MG TABLET PO SCH ×2 (09:46→21:18)
[2019-08-31] MEDS: CIPROFLOXACIN HCL 250 MG TABLET PO SCH ×2 (09:46→21:18)
[2019-08-31] MEDS: PANTOPRAZOLE SODIUM 40 MG DR TABLET PO SCH (09:46)
[2019-08-31] MEDS: FUROSEMIDE 20 MG/2 ML VIAL IVP SCH ×2 (09:47→22:00)
[2019-08-31] MEDS: DOCUSATE SODIUM 100 MG CAPSULE PO SCH ×2 (09:48→21:00)
[2019-08-31 12:08] VITALS: BP 93/66
[2019-08-31] MEDS: POTASSIUM CHLORIDE 20 MEQ ER TABLET PO PRN (21:18)
[2019-08-31] MEDS: METOPROLOL SUCCINATE 25 MG ER TABLET PO SCH (21:18)
[2019-08-31 21:25] VITALS: BP 117/68
[2019-09-01] VITALS (8 sets, daily range): BP systolic 90–113; BP diastolic 60–73
[2019-09-01] MEDS ORDERED: DIGOXIN 250 MCG/ML 2 ML AMP IVP ONE (06:45)
[2019-09-01 06:53] LABS: EOSINOPHILS % (AUTO) 0.4 % (1.0-6.0); HEMATOCRIT 35.8 % (36-46); LYMPHOCYTES # (AUTO) 1.7 K/uL (1.0-4.8); LYMPHOCYTES % (AUTO) 16.3 % (22.0-44.0); MEAN CORPUSCULAR HEMOGLOBIN 31.8 pg (26.0-34.0); MEAN CORPUSCULAR HGB CONC 33.6 G/dL (31.0-37.0); MEAN CORPUSCULAR VOLUME 94 fL (80-100); MONOCYTES # (AUTO) 1.3 K/uL (0.1-1.0); MONOCYTES % (AUTO) 12.2 % (2.0-9.0); NEUTROPHILS # (AUTO) 7.3 K/uL (1.8-7.7); NEUTROPHILS % (AUTO) 70.1 % (40.0-70.0); PLATELET COUNT (AUTO) 216 K/uL (150-450); RED BLOOD CELL COUNT(AUTO) 3.79 MIL/uL (4.00-5.20)
[2019-09-01] MEDS: METOPROLOL SUCCINATE 25 MG ER TABLET PO SCH ×2 (07:06→20:38)
[2019-09-01 07:10] LABS: ALANINE AMINOTRANSFERASE 33 U/L (12-78); ALKALINE PHOSPHATASE 239 U/L (46-116); ANION GAP 9 mmol/L (8-16); ASPARTATE AMINOTRANSFERASE 35 U/L (15-37); BILIRUBIN,TOTAL 1.1 mg/dL (0.1-1.0); CALCIUM, TOTAL 8.5 mg/dL (8.8-10.5); CARBON DIOXIDE 27 mmol/L (22-29); CHLORIDE 98 mmol/L (98-107); CREATININE 0.63 mg/dL (0.60-1.30); GLOMERULAR FILTR. RATE CALC > 60 mL/min (>60); GLUCOSE,RANDOM 92 mg/dL (70-110); POTASSIUM 3.9 mmol/L (3.5-5.1); SODIUM SERUM 134 mmol/L (136-145); TOTAL PROTEIN, SERUM 6.7 g/dL (6.4-8.2); UREA NITROGEN, BLOOD 14 mg/dL (7-18)
[2019-09-01 07:33] LABS: PLATELET MORPHOLOGY COMMENT GIANT PLTS PRESENT
[2019-09-01] MEDS: HEPARIN SODIUM,PORCINE 5,000 UNITS/ML VIAL SQ SCH ×3 (08:00→23:46)
[2019-09-01] MEDS: APIXABAN 5 MG TABLET PO SCH ×2 (08:30→20:38)
[2019-09-01] MEDS: MAGNESIUM OXIDE 400 MG TABLET PO PRN ×3 (08:30→20:42)
[2019-09-01] MEDS: PANTOPRAZOLE SODIUM 40 MG DR TABLET PO SCH (08:31)
[2019-09-01] MEDS: ASPIRIN 81 MG EC TABLET PO SCH (08:31)
[2019-09-01] MEDS: FUROSEMIDE 20 MG/2 ML VIAL IVP SCH ×2 (08:31→20:41)
[2019-09-01] MEDS: CIPROFLOXACIN HCL 250 MG TABLET PO SCH ×2 (08:31→20:38)
[2019-09-01] MEDS: MULTIVITAMINS WITH MINERALS, THERAPEUTIC TABLET PO SCH (08:31)
[2019-09-01] MEDS: DOCUSATE SODIUM 100 MG CAPSULE PO SCH ×2 (08:31→20:41)
[2019-09-02 00:25] VITALS: BP 107/69
[2019-09-02 05:32] VITALS: BP 114/56
[2019-09-02] MEDS: HEPARIN SODIUM,PORCINE 5,000 UNITS/ML VIAL SQ SCH ×2 (08:00→16:00)
[2019-09-02 08:09] VITALS: BP 104/62
[2019-09-02] MEDS: METOPROLOL SUCCINATE 25 MG ER TABLET PO SCH ×2 (08:52→20:17)
[2019-09-02] MEDS: FUROSEMIDE 20 MG/2 ML VIAL IVP SCH ×3 (08:53→20:17)
[2019-09-02] MEDS: CIPROFLOXACIN HCL 250 MG TABLET PO SCH ×2 (08:53→20:17)
[2019-09-02] MEDS: MULTIVITAMINS WITH MINERALS, THERAPEUTIC TABLET PO SCH (08:53)
[2019-09-02] MEDS: PANTOPRAZOLE SODIUM 40 MG DR TABLET PO SCH (08:53)
[2019-09-02] MEDS: DOCUSATE SODIUM 100 MG CAPSULE PO SCH ×2 (08:53→20:17)
[2019-09-02] MEDS: APIXABAN 5 MG TABLET PO SCH ×2 (08:53→20:17)
[2019-09-02] MEDS: ASPIRIN 81 MG EC TABLET PO SCH (08:53)
[2019-09-02] MEDS ORDERED: SODIUM CHLORIDE 0.9% 250 ML IV ONE (11:23)
[2019-09-02 12:00] VITALS: BP 123/67
[2019-09-02] MEDS ORDERED: METO25XL PO (15:01)
[2019-09-02 20:08] VITALS: BP 127/62
[2019-09-02 23:20] VITALS: BP 118/75
[2019-09-03] MEDS: HEPARIN SODIUM,PORCINE 5,000 UNITS/ML VIAL SQ SCH ×2 (00:07→09:20)
[2019-09-03 08:33] VITALS: BP 135/59
[2019-09-03] MEDS: FUROSEMIDE 20 MG/2 ML VIAL IVP SCH (09:00)
[2019-09-03] MEDS: ASPIRIN 81 MG EC TABLET PO SCH (09:20)
[2019-09-03] MEDS: CIPROFLOXACIN HCL 250 MG TABLET PO SCH (09:20)
[2019-09-03] MEDS: DOCUSATE SODIUM 100 MG CAPSULE PO SCH (09:20)
[2019-09-03] MEDS: APIXABAN 5 MG TABLET PO SCH (09:21)
[2019-09-03] MEDS: MULTIVITAMINS WITH MINERALS, THERAPEUTIC TABLET PO SCH (09:21)
[2019-09-03] MEDS: PANTOPRAZOLE SODIUM 40 MG DR TABLET PO SCH (09:21)
[2019-09-03] MEDS: METOPROLOL SUCCINATE 25 MG ER TABLET PO SCH (09:21)
[2019-09-03] MEDS: MAGNESIUM OXIDE 400 MG TABLET PO PRN (10:21)
[2019-09-03] MEDS ORDERED: MAGNESIUM OXIDE 400 MG TABLET PO ONE (15:15)
[2019-09-03 15:27] VITALS: BP 110/96
== END 2019-09-03 16:38 | disposition home or self-care (01) | DRG 194 ==
LOC: EMS 11:13 → ICU 18:49 → 5S 08-29 13:05
PROVIDERS: ADMIT Internal Medicine; ATTEND Internal Medicine
DX: I50.21 Acute systolic (congestive) heart failure (principal); G93.40 Encephalopathy, unspecified; E43 Unspecified severe protein-calorie malnutrition; E87.2 Acidosis; I95.9 Hypotension, unspecified; N17.9 Acute kidney failure, unspecified; I42.0 Dilated cardiomyopathy; E46 Unspecified protein-calorie malnutrition; I11.0 Hypertensive heart disease with heart failure; I48.20 Chronic atrial fibrillation, unspecified; R62.7 Adult failure to thrive; E87.6 Hypokalemia; Y90.9 Presence of alcohol in blood, level not specified; F41.9 Anxiety disorder, unspecified; I49.9 Cardiac arrhythmia, unspecified; F17.210 Nicotine dependence, cigarettes, uncomplicated; F12.90 Cannabis use, unspecified, uncomplicated; M54.9 Dorsalgia, unspecified; F10.10 Alcohol abuse, uncomplicated; Z68.25 Body mass index [BMI] 25.0-25.9, adult; Z59.0 Homelessness; Z91.19 Patient's noncompliance with other medical treatment and regimen
CPT/HCPCS: 51702; 70450; 83605; 83735; 84100; 84132; 84443; 87081; 87086; 93005; 96374; G0378; G0480; J0696; J1160; J1250; J1644; J1940; J3475; J3480; J7040; J7050

== ENCOUNTER 2019-09-03 19:52 | Inpatient (IN) | payer MEDICAID ==
[~2019-09-03] VITALS: Ht 165.1 cm; Wt 63.6 kg
[~2019-09-03 19:52] MED LIST changes: -CARV6 PO; +METO25XL PO
[2019-09-03 21:42] LABS: BASOPHILS % (AUTO) 0.6 % (0.0-2.0); EOSINOPHILS % (AUTO) 0.3 % (1.0-6.0); HEMATOCRIT 37.8 % (36-46); HEMOGLOBIN 12.6 g/dL (12.0-16.0); LYMPHOCYTES # (AUTO) 1.5 K/uL (1.0-4.8); LYMPHOCYTES % (AUTO) 14.9 % (22.0-44.0); MEAN CORPUSCULAR HEMOGLOBIN 31.6 pg (26.0-34.0); MEAN CORPUSCULAR HGB CONC 33.4 G/dL (31.0-37.0); MEAN CORPUSCULAR VOLUME 95 fL (80-100); MONOCYTES # (AUTO) 1.1 K/uL (0.1-1.0); MONOCYTES % (AUTO) 10.9 % (2.0-9.0); NEUTROPHILS # (AUTO) 7.3 K/uL (1.8-7.7); NEUTROPHILS % (AUTO) 73.3 % (40.0-70.0); PLATELET COUNT (AUTO) 245 K/uL (150-450); RED CELL DISTRIBUTION WIDTH 14.9 % (11.5-14.5)
[2019-09-03 21:59] LABS: ANION GAP 7 mmol/L (8-16); CALCIUM, TOTAL 9.8 mg/dL (8.8-10.5); CARBON DIOXIDE 29 mmol/L (22-29); CHLORIDE 95 mmol/L (98-107); CREATININE 1.27 mg/dL (0.60-1.30); GLOMERULAR FILTR. RATE CALC 42 mL/min (>60); GLUCOSE,RANDOM 122 mg/dL (70-110); POTASSIUM 4.5 mmol/L (3.5-5.1); SODIUM SERUM 131 mmol/L (136-145); UREA NITROGEN, BLOOD 25 mg/dL (7-18)
[2019-09-03 22:06] LABS: ALANINE AMINOTRANSFERASE 46 U/L (12-78); ALBUMIN 2.4 g/dL (3.4-5.0); ALKALINE PHOSPHATASE 272 U/L (46-116); ASPARTATE AMINOTRANSFERASE 47 U/L (15-37); BILIRUBIN,TOTAL 0.8 mg/dL (0.1-1.0); TOTAL PROTEIN, SERUM 8.7 g/dL (6.4-8.2)
[2019-09-03] MEDS ORDERED: PETROLATUM,WHITE 5 GM PACKET JELLY TP ONE (23:00)
[2019-09-03] MEDS ORDERED: ZOLPIDEM TARTRATE 5 MG TABLET PO PRN (23:15)
[2019-09-03] MEDS ORDERED: LORazepam 1 MG TABLET PO PRN (23:15)
[2019-09-03] MEDS ORDERED: OLANZapine 5 MG RAPDIS TABLET PO PRN (23:15)
[2019-09-04 03:28] LABS: HDL CHOLESTEROL 26 mg/dL (40-60); TRIGLYCERIDES 79 mg/dL (15-150)
[2019-09-04 03:40] LABS: CHOL/HDL RATIO 5.9 (3.9-5.7); CHOLESTEROL 153 mg/dL (131-200); LDL CHOL (CALC.) 111 mg/dL (0-130)
[2019-09-04 10:30] VITALS: BP 105/78
[2019-09-04] MEDS ORDERED: PNEUMOCOCCAL VACCINE POLYVALENT 0.5 ML VIAL [PPSV23] IM ONE (13:45)
[2019-09-04 16:12] VITALS: BP 105/73
[2019-09-04 16:13] VITALS: BP 105/73
[2019-09-04] MEDS ORDERED: RisperiDONE 0.5 MG TABLET PO SCH (21:00)
[2019-09-05 03:46] VITALS: BP 102/79
[2019-09-05 08:19] VITALS: BP 98/61
[2019-09-05] MEDS ORDERED: ESCITALOPRAM OXALATE 10 MG TABLET PO SCH (09:00)
[2019-09-05] MEDS ORDERED: PETROLATUM,WHITE 28 GM JELLY TP PRN (10:00)
[2019-09-05] MEDS ORDERED: ALBUTEROL SULFATE HFA 90 MCG/PUFF 8 GM INHALER IH PRN (10:00)
[2019-09-05] MEDS ORDERED: CloNIDine HCL 0.1 MG TABLET PO PRN (10:00)
[2019-09-05] MEDS ORDERED: ACETAMINOPHEN 325 MG TABLET PO PRN (10:00)
[2019-09-05] MEDS ORDERED: NICOTINE 14 MG/24 HOUR PATCH TD PRN (10:00)
[2019-09-05] MEDS ORDERED: LOPERAMIDE HCL 2 MG CAPSULE PO PRN (10:00)
[2019-09-05] MEDS ORDERED: MAG HYDROX/AL HYDROX/SIMETH ES 30 ML SUSPENSION UDCUP PO PRN (10:00)
[2019-09-05] MEDS ORDERED: MAGNESIUM HYDROXIDE SUSPENSION 30 ML UDCUP PO PRN (10:00)
[2019-09-05] MEDS ORDERED: GuaiFENesin/D-METHORPHAN [SUGAR-FREE] 200-20MG/10 ML SYRUP UDCUP PO PRN (10:00)
[2019-09-05] MEDS ORDERED: IBUPROFEN 400 MG TABLET PO PRN (10:00)
[2019-09-05] MEDS ORDERED: ONDANSETRON HCL 4 MG TABLET PO PRN (10:00)
[2019-09-05] MEDS ORDERED: DOCUSATE SODIUM 100 MG CAPSULE PO PRN (10:00)
[2019-09-05] MEDS ORDERED: ESCI10TA PO (13:50)
[2019-09-05] MEDS ORDERED: RISP.5 PO (13:51)
[2019-09-05] MEDS ORDERED: ASPI-728 PO (13:53)
[2019-09-05] MEDS ORDERED: METO25XL PO (13:54)
[2019-09-05] MEDS ORDERED: METOPROLOL SUCCINATE 25 MG ER TABLET PO SCH (17:00)
[2019-09-06] MEDS ORDERED: ASPIRIN 81 MG EC TABLET PO SCH (09:00)
== END 2019-09-05 15:00 | disposition home or self-care (01) | DRG 885 ==
LOC: EMS 19:53 → 3EI 09-04 08:36
PROVIDERS: ADMIT Psychiatry & Neurology Psychiatry; ATTEND Psychiatry & Neurology Psychiatry
DX: F20.9 Schizophrenia, unspecified (principal); I11.0 Hypertensive heart disease with heart failure; I50.22 Chronic systolic (congestive) heart failure; F10.10 Alcohol abuse, uncomplicated; F32.9 Major depressive disorder, single episode, unspecified; F41.9 Anxiety disorder, unspecified; F17.210 Nicotine dependence, cigarettes, uncomplicated; F19.10 Other psychoactive substance abuse, uncomplicated; Z91.19 Patient's noncompliance with other medical treatment and regimen; Z59.0 Homelessness; Z79.82 Long term (current) use of aspirin; Z79.899 Other long term (current) drug therapy
CPT/HCPCS: 93005; G0480